=== PATIENT | male | born 1945 | race Caucasian/White ===

== ENCOUNTER 2023-05-05 12:19 | Emergency (ER) | payer MEDICARE, MEDICAID ==
[~2023-05-05] VITALS: Ht 172.7 cm; Wt 77.9 kg
[2023-05-05 12:27] VITALS: BP 136/67; PULSE 91; RESP 17; TEMP 98.8; O2SAT 96
[2023-05-05] MEDS ORDERED: TETANUS AND DIPHTHERIA TOX/PF 0.5ML SYR (ADULT) IM ONE (12:45)
[2023-05-05] MEDS ORDERED: LIDOCAINE HCL/EPINEPHRINE 1%-EPI 1:100,000 50 ML VIAL INFIL ONE (12:45)
[2023-05-05] MEDS ORDERED: LIDOCAINE HCL/EPINEPHRINE 1%-EPI 1:100,000 20 ML VIAL INFIL NR (13:30)
[2023-05-05] MEDS ORDERED: CEPH500C2 MT (15:46)
[2023-05-05] MEDS ORDERED: DOCU-138 MT (15:46)
[2023-05-05] MEDS ORDERED: BACI3.5O5 EACHEYE (15:46)
== END 2023-05-05 16:29 | disposition home or self-care (01) ==
LOC: ER 12:19
DX: S01.81XA Laceration without foreign body of other part of head, initial encounter (principal); E11.9 Type 2 diabetes mellitus without complications; I10 Essential (primary) hypertension; Z99.2 Dependence on renal dialysis; W18.39XA Other fall on same level, initial encounter; Y93.89 Activity, other specified; Y92.89 Other specified places as the place of occurrence of the external cause; Y99.8 Other external cause status
CPT/HCPCS: 12013; 90471; 90714; 99285; J3490